=== PATIENT | female | born 1955 | race Two or more races ===

== ENCOUNTER 2025-04-04 08:00 | Day surgery (SDC) | payer OTHER ==
[~2025-04-04 08:00] MED LIST: LIPITOR20 MG PO; SYNTHROID75 MCG PO; VERAPAMIL ER240 MG PO
[2025-04-04] MEDS ORDERED: CEFAZOLIN SODIUM 1,000 MG VIAL ONE (08:54)
[2025-04-04] MEDS ORDERED: BUPIVACAINE HCL/MPF 0.5% 30ML VIAL ONE (09:37)
[2025-04-04] MEDS ORDERED: HEPARIN SODIUM,PORCINE/PF 100 UNIT/ML SYRINGE IV ONE (09:38)
[2025-04-04] MEDS ORDERED: LIDOCAINE HCL 1%/EPINEPHRINE 20ML VIAL IJ ONE (09:38)
[2025-04-04] MEDS ORDERED: POVIDONE-IODINE 118 ML BOTT TOP ONE (09:57)
[2025-04-04] MEDS ORDERED: LIDOCAINE HCL 1% 20 ML VIAL IJ ONE (10:12)
[2025-04-04] MEDS ORDERED: ACETAMINOPHEN-1 EAC2 PO (11:59)
[2025-04-04] MEDS ORDERED: CEPHALEXIN250 M1 PO (12:00)
[2025-04-04] MEDS ORDERED: DEXAMETHASONE SODIUM PHOSP/PF 10 MG/ML VIAL ONE (14:47)
== END 2025-04-04 16:00 | disposition home or self-care (01) ==
LOC: CIR.AMB 08:00
PROVIDERS: ATTEND Obstetrics & Gynecology Gynecology
DX: N39.41 Urge incontinence (principal); N32.81 Overactive bladder; Z88.5 Allergy status to narcotic agent
CPT/HCPCS: 64581; 64590; 95972; C1767; C1778